=== PATIENT | male | born 1980 | race Two or more races ===

== ENCOUNTER 2024-01-18 12:04 | Emergency (ER) | payer SELFPAY ==
[2024-01-18] MEDS ORDERED: Sodium Chloride 0.9% 1,000 ML IV SCH (12:30)
[2024-01-18] MEDS: Sodium Chloride 0.9% 1,000 ML IV ONE (12:53)
[2024-01-18] MEDS: methylPREDNISolone Sodium Succinate 125 MG/2 ML SDV IVPUSH ONE (12:58)
[2024-01-18 13:18] LABS: BASOPHILS ABSOLUTE AUTO 0.08 K/uL (0.00-0.20); BASOPHILS PERCENT AUTO 0.5 % (0.0-1.0); EOSINOPHILS PERCENT AUTO 0.7 % (0.0-6.0); HEMATOCRIT 38.9 % (42.0-52.0); HEMOGLOBIN 13.1 g/dL (14.0-18.0); IMMATURE GRAN ABSOLUTE AUTO 0.18 K/uL (0.00-0.05); IMMATURE GRAN PERCENT AUTO 1.2 % (0.0-0.4); LYMPHOCYTES ABSOLUTE AUTO 1.97 K/uL (1.00-4.80); LYMPHOCYTES PERCENT AUTO 13.4 % (24.0-44.0); MEAN CORPUSCULAR HEMOGLOBIN 27.8 pg (28.0-32.0); MEAN CORPUSCULAR HGB CONC 33.7 g/dL (32.0-36.0); MEAN CORPUSCULAR VOLUME 82.4 fL (83.0-99.0); MEAN PLATELET VOLUME 10.9 fL (9.4-12.4); MONOCYTES PERCENT AUTO 8.8 % (0.0-8.0); NEUTROPHILS ABSOLUTE AUTO 11.12 K/uL (1.80-7.70); NEUTROPHILS PERCENT AUTO 75.4 % (41.0-71.0); PLATELET COUNT,PLT 286 K/uL (150-400); RED BLOOD CELL COUNT 4.72 M/uL (4.52-5.90); WHITE BLOOD CELL COUNT,WBC 14.75 K/uL (3.9-11.3)
[2024-01-18 13:20] LABS: BASE EXCESS VENOUS 1.7 (-2.0-3.0); BICARBONATE,VENOUS 27 mEQ/mL (22-28); PCO2 VENOUS 45 mmHG (41-51); PH,VENOUS 7.39 (7.31-7.41)
[2024-01-18] MEDS: Nitroglycerin 0.4 MG Tab.SL SL ONE (13:20)
[2024-01-18] MEDS: Nitroglycerin/D5W 25 MG/250 ML BOTTLE IV SCH (13:20)
[2024-01-18 13:22] LABS: PO2 VENOUS < 30 mmHG (35-45)
[2024-01-18 13:49] LABS: A/G RATIO 0.4 (0.9-1.6); ALANINE AMINOTRANSFERASE,ALT 78 IU/L (14-63); ALBUMIN 2.2 g/dL (3.4-5.0); ALKALINE PHOSPHATASE 197 U/L (46-116); ASPARTATE AMNIOTRANSFERASE,AST 68 IU/L (15-37); BILIRUBIN TOTAL 0.5 mg/dL (0.2-1.0); BLOOD UREA NITROGEN,BUN 17 mg/dL (7.0-18.0); CHLORIDE,CL 98 mmol/L (98-107); CREATININE 1.9 mg/dL (0.8-1.3); GLUCOSE RANDOM 144 mg/dL (74-106); MAGNESIUM 1.8 mg/dL (1.8-2.4); POTASSIUM,K 3.8 mmol/L (3.5-5.1); PROTEIN TOTAL,TP 7.6 g/dL (6.4-8.2); SODIUM,NA 135 mmol/L (136-148)
[2024-01-18 13:50] LABS: ESTIMATED GFR 44 mL/min (>60)
[2024-01-18] MEDS: Iopamidol 755 MG/ML 500 ML Multipack Bottle IVPUSH STA (14:13)
[2024-01-18 14:33] LABS: BASE EXCESS ARTERIAL 1.5 (-2.0-3.0); BICARBONATE,ARTERIAL 25 mEq/L (22-26); PCO2 ARTERIAL 35 mmHG (35-45); PO2 ARTERIAL 74 mmHG (80-105)
[2024-01-18] MEDS: Furosemide 40 MG/4 ML VIAL IVPUSH ONE (14:48)
[2024-01-18] MEDS: Albuterol/Ipratropium 3.0-0.5 MG/3 ML Neb Soln NEB ONE (14:49)
[2024-01-18 15:06] LABS: BILIRUBIN,URINE NEGATIVE (NEGATIVE); COLOR,URINE YELLOW; GLUCOSE,URINE NEGATIVE (NEGATIVE); KETONES,URINE NEGATIVE (NEGATIVE); LEUKOCYTE ESTERASE,URINE NEGATIVE (NEGATIVE); NITRITE,URINE NEGATIVE (NEGATIVE); OCCULT BLOOD,URINE NEGATIVE (NEGATIVE); PROTEIN,URINE 100 mg/dL (NEGATIVE)
[2024-01-18 15:07] LABS: APPEARANCE,URINE HAZY
[2024-01-18 15:08] LABS: CORONAVIRUS COVID-19 NAA NEGATIVE (NEGATIVE); INFLUENZA A NAA NEGATIVE (NEGATIVE); INFLUENZA B NAA NEGATIVE (NEGATIVE); RESPIRATORY SYNCYTIAL VIR NAA NEGATIVE (NEGATIVE)
[2024-01-18 15:18] LABS: RBC,URINE 0-2 (0-2/HPF)
[2024-01-18 15:19] LABS: BACTERIA,URINE FEW (NEGATIVE); EPITHELIAL CELLS,URINE FEW (NONE-FEW)
[2024-01-18] MEDS: cefTRIAXone 1 GM in Sodium Chloride 0.9% 50 ML IV ONE (15:51)
== END 2024-01-18 19:11 ==
LOC: MW.ED 12:04
DX: J18.9 Pneumonia, unspecified organism (principal); J81.1 Chronic pulmonary edema; I16.1 Hypertensive emergency; I10 Essential (primary) hypertension
CPT/HCPCS: 0241U; 36415; 36600; 71045; 71275; 74174; 80053; 81001; 82803; 83605; 83735; 83880; 84443; 84484; 85025; 85379; 87040; 93005; 96365; 96366; 96368; 96375; 99285; A9270; J0696; J1940; J2305; J2919; J3490; J7030; Q9967; 93010